=== PATIENT | female | born 1970 | race Caucasian/White ===

== ENCOUNTER → 2016-05-26 | Day surgery (SDC) | payer OTHER ==
[2016-05-19 10:11] VITALS: Ht 170.2 cm; Wt 65.9 kg
[~2016-05-26] VITALS: Ht 170.2 cm; Wt 65.9 kg
[~2016-05-26] MED LIST: DEXAMETHASONE SOD INJ 4 MG/ML VIAL ONE; FENTANYL CITRATE INJ 50 MCG/1 ML 2 ML VIAL IV PRN; FENTANYL CITRATE INJ 50 MCG/1 ML 2 ML VIAL ONE; KETOROLAC TROMETHAMINE 30 MG/ML VIAL ONE; LACTATED RINGER'S 1000ML 1,000 ML IV PRN; LACTATED RINGER'S 1000ML 1,000 ML IV SCH; LIDOCAINE HCL 2% 2 ML VIAL (20MG/ML) ONE; MIDAZOLAM HCL 1 MG/ML 2ML VIAL ONE; MULT-506 PO; ONDANSETRON INJ 2 MG/ML 2 ML VIAL IV PRN; ONDANSETRON INJ 2 MG/ML 2 ML VIAL ONE; OXYCODONE/ACETAMINOPHEN 5-325 TAB PO PRN; PROMETHAZINE HCL INJ 25 MG in SODIUM CHLORIDE 0.9% 50ML 50 ML IV PRN; PROPOFOL IV EMULSION 10 MG/ML 20 ML VIAL IV ONE; SODIUM CHLORIDE 0.9% 1000ML 1,000 ML IV SCH
--- NOTE | 2016-05-26 06:56 | History & Physical Bridge - [place] ---
H&P Re-Evaluation Bridge Note: I have examined the patient, reviewed the History & Physical and in the interval since the performance of the History & Physical I have noted the following changes of clinical significance: No changes noted
--- NOTE | 2016-05-26 07:50 | Discharge Instructions-SurgCtr ---
Discharge Instructions Visit Reason for Visit: Menorrhagia Discharge Discharge Diagnosis / Problem: Menorrhagia, endometrial polyp Discharge Goals Goal(s): Diagnostic testing, Therapeutic intervention Activity Recommendations Activity Limitations: per Instructions/Follow-up section Anesthesia . Post Anesthesia Instructions: If you have had General Anesthesia or IV Sedation: * Do not drive today. * Resume driving when surgeon permits. * Do not make important decisions or sign legal documents today. * Call surgeon for: 1. Temperature elevations greater than 101 degrees F. 2. Uncontrollable pain. 3. Excessive bleeding. 4. Persistent nausea and vomiting. 5. Medication intolerance (nausea, vomiting or rash). * For nausea and vomiting use only clear liquids such as: tea, soda, bouillon until nausea subsides, then gradually increase diet as tolerated. * If you have any concerns or questions, call your surgeon's office. If physician is unavailable and it is an emergency, call 911 or go to the nearest emergency room. . Instructions / Follow-Up Instructions / Follow-Up ACTIVITY RECOMMENDATIONS: * Avoid tampons, douching, hot tubs, pools, and intercourse until bleeding has stopped. * May shower as usual. * No strenuous activity for 24-48 hours. After 24-48 hours, you may do anything you feel like doing (driving and sports are okay). SPECIAL CARE INSTRUCTIONS: Special Diet: * Mild nausea may occur in the immediate post-operative period. * Take clear liquids such as tea, cola or bouillon until all nausea has subsided; you may then resume your normal diet. Special Care: * Light bleeding and vaginal spotting can last from a few days to 3-4 weeks. Call your doctor if bleeding becomes heavier than the heaviest part of your period. * Check your temperature twice a day for one week. If it goes above 100.4 degrees Fahrenheit (38.0 Celsius), notify your doctor. * Call your doctor's office for an appointment for 6 weeks after your surgery. FOLLOW-UP VISIT: Call your doctor's office for an appointment for 6 weeks after your surgery. Diet Recommendations Home Diet: resume previous diet Procedures Procedures Performed: Dilatation And Curettage, Hysteroscopy, Polypectomy, Endometrial Ablation Pending Studies Studies pending at discharge: yes (pathology review of tissue) Medical Emergencies . Who to Call and When: Medical Emergencies: If at any time you feel your situation is an emergency, please call 911 immediately. . Non-Emergent Contact . . "Provider Documentation" section prepared by Tamra Merrill.
--- NOTE | 2016-05-26 07:53 | [facility] Post Operative Brief Note ---
Immediate Operative Summary Operative Date May 26, 2016. Pre-Operative Diagnosis Menorrhagia Post-Operative Diagnosis same Procedure(s) Performed Dilatation And Curettage, Hysteroscopy, Polypectomy, Endometrial Ablation Surgeon Dr. Tiara Merrill Video Game Developer Surgeon(s) Khalida Taylor, [place]. [facility] Estimated Blood Loss <5CC Findings Uterus sounded to 7cm, cavity-filling endometrial polyp found on hysteroscopy. Bilateral ostia seen after removal of polyp. Cervix length 3cm, cavity length 4cm. Cavity width 3.3cm. Power 73. Time 1m25s. Specimens A. Endometrial Curettings B. Endometrial polyp Drains none Anesthesia General Complication(s) None Disposition Recovery Room / PACU
--- NOTE | 2016-05-26 07:59 | Medical Student: [facility] ---
Immediate Operative Summary Operative Date May 26, 2016. Pre-Operative Diagnosis Menorrhagia Post-Operative Diagnosis Menorrhagia, polyp Procedure(s) Performed Dilatation And Curettage, Hysteroscopy, Polypectomy, Endometrial Ablation Surgeon Dr. Merrill Automation Driver Surgeon(s) Harleen Taylor MSIII Estimated Blood Loss <5mL Findings Small polyp visualized within uterus. Uterus sounded to 7 cm with cervix length of 3cm. Uterine width 3.3 cm. Specimens Endometrial currettings Polyp Drains None Anesthesia General Complication(s) None Disposition Recovery Room / PACU
[2016-05-26 08:40] VITALS: TEMP 36.4
--- NOTE | 2016-05-26 08:58 | OPERATIVE REPORT ---
DATE OF OPERATION: 05/26/2016 PREOPERATIVE DIAGNOSIS: Menorrhagia. POSTOPERATIVE DIAGNOSIS: Same plus endometrial polyp. PROCEDURES PERFORMED: 1 Dilation and curettage. 2. Hysteroscopy. 3. Polypectomy. 4. Endometrial completion. SURGEON: Dr. Merrill. ANNUAL GIVING OFFICER: Khalida Montoya MS3. ESTIMATED BLOOD LOSS: Less than 5 mL FINDINGS: Uterus sounded to 7 cm, cavity filling endometrial polyp found on hysteroscopy. Bilateral ostia seen after removal of polyp. Cervical length, 3 cm, cavity length 4 cm, cavity width 3.3 cm. Power 73. Time 1 minute 25 seconds. SPECIMENS: 1. Endometrial curettings. 2. Endometrial polyp. DRAINS: None. ANESTHESIA: General. COMPLICATIONS: None. DISPOSITION: Recovery room and PACU. INDICATIONS FOR PROCEDURE: The patient is a 45-year-old G1, P 1 with heavy menses occurring every 3 weeks sometimes passing clots. Multiple attempts were made an office to perform endometrial biopsy; however I was unable to pass a catheter due to patient discomfort. I attempted to dilate the patient's cervix in office but she could not tolerate. She has completed her childbearing and her has plans for a vasectomy. DESCRIPTION OF PROCEDURE: The patient was seen in the preoperative holding area where risks, benefits, alternatives were reviewed. She elected to proceed with surgery. She was taken to the operating room where general anesthesia was undertaken and a time-out was called and patient identity and procedure were verified. She was placed in the dorsal lithotomy position with feet in candy cane stirrups and prepared and draped in the usual sterile fashion. The weighted speculum was placed in the vagina. The cervix was visualized and the anterior lip of the cervix was grasped with a single tooth tenaculum. The uterus was sounded to 7 cm. The cervix was then sequentially dilated with Felix-Perez dilators to admit a hysteroscope. The hysteroscope was placed through the cervix and the uterine contents were visualized. A cavity filling endometrial polyp was noted on hysteroscopy. The hysteroscope was then switched out for a MyoSure scope and the polyp was removed using the MyoSure device. The polyp base was at the fundus of the uterus. At this time now with removal of polyp the bilateral tubal ostia were visualized, a picture was taken. The scope was removed and a gentle endometrial curettage was undertaken with a sharp curette to obtain a path specimen as we had been unable to obtain this in the office prior to surgery. The endometrial curettings and endometrial polyp were passed off to be sent to pathology for further evaluation. Next, the MyoSure device was inserted with the above noted measurements. This device was applied and activated for a burn time of 1 minute and 25 seconds. At the conclusion of the burn the MyoSure device was withdrawn from the cervix. All instruments were removed. Excellent hemostasis was observed. The patient was cleaned of all Betadine prep and was taken to the postoperative recovery area in stable and good condition. I attest to the content of the Intraoperative Record and any orders documented therein. Any exceptio ns are noted below.
[2016-05-26 09:10] VITALS: BP 107/69; PULSE 54; O2SAT 100
--- NOTE | 2016-05-26 09:19 | Anesthesia Progress Nt - [facility] ---
Anesthesia Post Op Note Date & Time May 26, 2016 at 09:18 Vital Signs Pain Intensity: 2 Vital Signs Past 12 Hours Date Time Temp Pulse Resp B/P Pulse Ox O2 Delivery O2 Flow Rate FiO2 05/26/16 09:10 54 16 107/69 100 Room Air 05/26/16 08:40 36.4 58 16 109/69 100 Room Air 05/26/16 08:30 49 16 99 05/26/16 08:30 50 16 05/26/16 08:28 105/71 05/26/16 08:26 36.6 55 12 116/65 100 Room Air 05/26/16 08:25 59 12 100 05/26/16 08:25 61 12 05/26/16 08:23 116/65 05/26/16 08:20 83 17 05/26/16 08:20 83 17 99 05/26/16 08:19 119/77 05/26/16 08:15 55 6 100 05/26/16 08:15 56 6 05/26/16 08:14 103/45 05/26/16 08:10 57 10 05/26/16 08:10 55 10 100 05/26/16 08:09 50 14 05/26/16 08:09 50 14 103/53 100 05/26/16 08:04 57 16 100 05/26/16 08:04 56 16 05/26/16 08:03 111/65 05/26/16 07:59 55 12 100 05/26/16 07:59 55 12 05/26/16 07:58 54 17 107/66 100 05/26/16 07:58 53 17 05/26/16 07:58 36.7 61 12 123/66 100 Diffusion Mask 6 05/26/16 06:35 36.6 60 16 109/71 100 Room Air Notes Mental Status: alert / awake / arousable, participated in evaluation Pt Amnestic to Procedure: Yes Nausea / Vomiting: adequately controlled Pain: adequately controlled Airway Patency, RR, SpO2: stable & adequate BP & HR: stable & adequate Hydration State: stable & adequate Anesthetic Complications: no major complications apparent Pt did well.
== END | disposition home or self-care (01) ==
LOC: X.SURG 06:21
PROVIDERS: ATTEND Obstetrics & Gynecology
DX: N92.0 Excessive and frequent menstruation with regular cycle (principal); N84.0 Polyp of corpus uteri

== ENCOUNTER → 2017-02-24 | Outpatient (CLI) | payer OTHER ==
[~2017-02-24] MED LIST changes: -DEXAMETHASONE SOD INJ 4 MG/ML VIAL ONE; -FENTANYL CITRATE INJ 50 MCG/1 ML 2 ML VIAL IV PRN; -FENTANYL CITRATE INJ 50 MCG/1 ML 2 ML VIAL ONE; -KETOROLAC TROMETHAMINE 30 MG/ML VIAL ONE; -LACTATED RINGER'S 1000ML 1,000 ML IV PRN; -LACTATED RINGER'S 1000ML 1,000 ML IV SCH; -LIDOCAINE HCL 2% 2 ML VIAL (20MG/ML) ONE; -MIDAZOLAM HCL 1 MG/ML 2ML VIAL ONE; -ONDANSETRON INJ 2 MG/ML 2 ML VIAL IV PRN; -ONDANSETRON INJ 2 MG/ML 2 ML VIAL ONE; -OXYCODONE/ACETAMINOPHEN 5-325 TAB PO PRN; -PROMETHAZINE HCL INJ 25 MG in SODIUM CHLORIDE 0.9% 50ML 50 ML IV PRN; -PROPOFOL IV EMULSION 10 MG/ML 20 ML VIAL IV ONE; -SODIUM CHLORIDE 0.9% 1000ML 1,000 ML IV SCH
--- NOTE | 2017-02-26 07:45 | MAMMOGRAPHY REPORT ---
BILATERAL DIGITAL SCREENING MAMMOGRAM TOMOSYNTHESIS WITH CAD: 02/24/2017 CLINICAL HISTORY: Asymptomatic. Personal history of breast cancer. TECHNIQUE: Breast tomosynthesis in addition to standard 2D mammography was performed. Current study was also evaluated with a Computer Aided Detection (CAD) system. COMPARISON: No prior exams were available for comparison. BREAST COMPOSITION: The tissue of both breasts is heterogeneously dense, which may obscure small mas ses. FINDINGS: There is asymmetry of the size of the breasts with architectural distortion in the upper ou ter posterior left breast, likely representing the site of prior lumpectomy. No obvious mass, nathalie ectural distortion, asymmetry or cluster of microcalcifications is seen bilaterally. IMPRESSION: ACR BI-RADS CATEGORY 1: NEGATIVE There is no mammographic evidence of malignancy. Prior outside mammograms are currently being reques nhi and if obtained they will be reviewed, compared to the current exam to assess for any more subtle changes, and an addendum will be made to this report. Otherwise, a 1 year screening mammogram is re commended. The patient will receive written notification of the results. Approximately 10% of breast cancers are not detected with mammography. A negative mammographic report should not delay biopsy if a clinically suggestive mass is present. Divina Ansari M.D. ay/:02/24/2017 16:53:53 Director Behavioral Health: Vivian TAVARES)(Francisco J), [facility] letter sent: Normal 1/2 BI-RADS Code: ACR BI-RADS Category 1: Negative
== END | disposition home or self-care (01) ==
LOC: C.MAMM 11:46
PROVIDERS: ATTEND Nurse Practitioner Family
DX: Z12.31 Encounter for screening mammogram for malignant neoplasm of breast (principal)

== ENCOUNTER → 2017-04-08 | Outpatient (CLI) | payer OTHER | END | disposition home or self-care (01) | LOC: C.PAPS 10:56 | PROVIDERS: ATTEND Obstetrics & Gynecology | DX: Z01.411 Encounter for gynecological examination (general) (routine) with abnormal findings (principal); R87.610 Atypical squamous cells of undetermined significance on cytologic smear of cervix (ASC-US) ==

== ENCOUNTER → 2017-04-08 | Outpatient (CLI) | payer OTHER ==
[2017-04-10 01:52] LABS: CHLAMYDIA TRACH RNA*** NOT DETECTED (NOT DETECTED); GC (NEIS GONORRHOEAE)RNA** NOT DETECTED (NOT DETECTED)
== END | disposition home or self-care (01) ==
LOC: C.LABSPEC 11:35
PROVIDERS: ATTEND Obstetrics & Gynecology
DX: Z01.419 Encounter for gynecological examination (general) (routine) without abnormal findings (principal)

== ENCOUNTER → 2017-06-30 | Outpatient (CLI) | payer OTHER | END | disposition home or self-care (01) | LOC: C.PATHSPEC 17:52 | PROVIDERS: ATTEND Obstetrics & Gynecology | DX: R87.612 Low grade squamous intraepithelial lesion on cytologic smear of cervix (LGSIL) (principal) ==